=== PATIENT | female | born 2000 | race Caucasian/White ===

== ENCOUNTER 2023-06-27 08:45 | Outpatient (AMB) | payer OTHER, SELFPAY ==
--- NOTE | 2023-06-27 08:51 | HO.SPINEOV ---
Intake Visit Reasons: Sacroiliitis Intake Note: Ms. Cool is here today c/o Right sided SI Joint pain that radiates down right leg. Industrial Relations Analyst Required: No Allergies No Known Allergies Allergy (Verified 06/27/23 08:56) Assessment & Plan Assessment & Plan (1) SI (sacroiliac) joint inflammation: Code(s): M46.1 - Sacroiliitis, not elsewhere classified Category: Medical Plan Dear colleague Thank you for referring Liat Cool to the office today with a chief complaint of right SI joint pain. HPI: This unfortunate 22-year-old female developed an acute pain on the right side in the region of her SI joint in October of 2020 without any precipitating factors. The pain has been debilitating. The pain wakes her up at night, prevents her from walking or sitting for prolonged period of times. In and out of cars very painful. On a normal day the pain can be 10/10 during a flare up. Sometimes the pain radiates down the leg. She still works with the [employer] office. She tried several conservative treatments such as physical therapy chiropractic therapy which were not helpful. An injection in the SI joint gave near complete relief for several months. She also wears an SI joint belt that relieves the pain. The left side is unaffected. PMH: Noncontributory Medications: None Allergies: NKDA Social history: Employed, nonsmoker Physical Exam: Pleasant female in obvious agony. This pain on palpation over the right SI joint. TESSY test is positive. Martínez test is positive. No deficits for motor sensation or reflexes. There is hypermobility of her elbow and knee joints. Radiological Studies: MRI of the lumbar spine done at [facility] on 09/05/2022 shows no surgical abnormalities of the lumbar spine. Impression/Plan: This 22-year-old female suffering from a right sacroiliitis. She has a classic findings on physical exam and responded well to an SI joint injection and an SI joint belt. Unfortunately, the symptoms are not improving over time and therefore I advised her to undergo an SI joint fusion. She will be scheduled for 10/09/2023. Thank you for allowing me to participate in your patients care. total time spent was 35 minutes in counseling ,coordination of plan, personal review of imaging, surgical decision making and subsequent plan William Peraza MD, PhD Spine Fellowship Trained Neurosurgeon Director, [facility] Coding Level of Care Code New Pt Level 3 (12668) Diagnoses SI (sacroiliac) joint inflammation M46.1
== END 2023-06-27 09:42 | disposition home or self-care (01) ==
PROVIDERS: PCP Internal Medicine; Referring Provider Physician Assistant; Visit Provider Neurological Surgery
DX: M46.1 Sacroiliitis, not elsewhere classified (principal)
CPT/HCPCS: 99203

== ENCOUNTER → 2023-06-27 08:45 | Outpatient (BNVA) | payer OTHER, SELFPAY | PROVIDERS: PCP Internal Medicine; Visit Provider Neurological Surgery ==

== ENCOUNTER 2023-11-06 07:50 | Day surgery (SDC) | payer OTHER, SELFPAY ==
[2023-10-22 13:35] VITALS: BMI 27.5
--- NOTE | 2023-11-05 12:17 | HO.ANESPROP2 ---
Documented by User: Siomara Schumacher NP 11/05/23 12:18 HPI - Anesthesia Eval Consult details Narrative: 23yo F for Right Sacroiliac Joint Fusion PMFSH Active Problems Active Problems: All Active Problems SI (sacroiliac) joint inflammation (Acute) Past Medical History Medical History Sacroiliac joint pain Low back pain History of seizure (~2018) Hx of eating disorder Depression Anxiety History of OCD (obsessive compulsive disorder) Surgical History Surgical History Hx of wisdom tooth extraction History of tonsillectomy Social History Social History Household Members: Significant Other Housing: Apartment Patient Tobacco Use Status: Never used Tobacco Use of substances other than those prescribed or required for medical reasons: Yes Substance Use Type: Marijuana Substance Use Type Other:: marijuana once every 2 weeks Substance Use Frequency: Monthly Have you been hit, kicked, punched, or otherwise hurt by someone within the past year? If so, by whom?: No Are you DNR?: No Advance Directives: No Advance Directives Information Provided: Yes Advance Directives on File: No Healthcare Proxy: No Recently lost weight without trying: No Patient : No FDLMP: 10/19/2023 : No Poor oral hygiene: No Meds Allergies Allergy/AdvReac Type Severity Reaction Status Date / Time No Known Allergies Allergy Verified 10/22/23 13:31 Home Medications ?Medication ?Instructions ?Recorded ?Confirmed ?Last Taken ?Type No Known Home Meds 10/22/23 10/22/23 Unknown History Exam Height,Weight and Vital Signs: Height 5 ft 4 in Weight 72.575 kg Assessment and Plan Assessment Anesthesia Assessment: Chart Reviewed Documented by User: Filomena Beasley MD 11/06/23 10:50 PMFSH Past Medical History Medical History Sacroiliac joint pain Low back pain History of seizure (~2018) Hx of eating disorder Depression Anxiety History of OCD (obsessive compulsive disorder) Surgical History Surgical History Hx of wisdom tooth extraction History of tonsillectomy History of Problems with Anesthesia: No Social History Social History Household Members: Significant Other Housing: Apartment Patient Tobacco Use Status: Never used Tobacco Use of substances other than those prescribed or required for medical reasons: Yes Substance Use Type: Marijuana Substance Use Type Other:: marijuana once every 2 weeks Substance Use Frequency: Monthly Have you been hit, kicked, punched, or otherwise hurt by someone within the past year? If so, by whom?: No Are you DNR?: No Advance Directives: No Advance Directives Information Provided: Yes Advance Directives on File: No Healthcare Proxy: No Recently lost weight without trying: No Patient : No FDLMP: 10/19/2023 : No Poor oral hygiene: No Meds Allergies Allergy/AdvReac Type Severity Reaction Status Date / Time No Known Allergies Allergy Verified 10/22/23 13:31 Home Medications ?Medication ?Instructions ?Recorded ?Confirmed ?Last Taken ?Type No Known Home Meds 10/22/23 10/22/23 Unknown History Exam Airway Mallampati Class: I TM Dist: >3cm Neck ROM: Full Loose/Missing/Broken Teeth: No Heart: RRR Lungs: CTA Assessment and Plan Assessment Anesthesia Assessment: Anesthesia Plan Discussed Final Anesthetic Review History of Problems with Anesthesia: No NPO: Yes ASA Class: II Final Preanesthetic Review: Meds/Allgs Chart Reviewed, Consent Obtained/Reviewed and Anes Risks/Benef Reviewed Patient Risk: Low Procedure Risk: Intermediate Anesthetic Plan Anesthetic Plan: GA Disposition: Standard PACU
[2023-11-06] VITALS (8 sets, daily range): BP systolic 123–137; BP diastolic 80–91; PULSE 72–111; RESP 14–18; TEMP 36.4–36.6; O2SAT 96–99
[2023-11-06 09:54] LABS: UPreg QC Valid YES; Urine Pregnancy NEGATIVE (NEGATIVE)
[2023-11-06] MEDS: Lactated Ringers 1,000 ML 100 ML IVCONT (10:00)
[2023-11-06] MEDS: methocarbamoL 750 MG TABLET PO (10:04)
[2023-11-06] MEDS: Gabapentin 300 MG CAPSULE PO (10:04)
--- NOTE | 2023-11-06 10:15 | MHC.SHP ---
Pre-Procedural Eval Section A - 24 Hr Update-Section A only Date of Service: 11/06/23 The patient is an INPATIENT: No Section B - Complete if H&P > 30 days Chief Complaint: Sacroiliitis, not elsewhere classified Allergies: Allergies Allergy/AdvReac Type Severity Reaction Status Date / Time No Known Allergies Allergy Verified 10/22/23 13:31 Review of Systems Sugical H&P ROS: Negative: Constitution, Cardiovascular, Respiratory, Neurological, Psychiatric, Hem-Onc, Allergic/Immunologic, Gastrointestinal, Genitourinary, Musculoskeletal, Integumentary, Endocrine and Eyes/Ears/Nose/Throat Exam Surgical H&P Exam: Normal: HEENT, Normal: Heart, Normal: Lungs, Normal: Extremities, Normal: Abdomen, Normal: Skin and Normal: Neurological (Awake, alert) Plan Diagnosis/Plan: Unchanged I have reviewed the history and physical and performed a pertinent physical examination on my patient. No changes have occurred unless specified. Right SI joint fusion Time Spent With Patient Time: Total time managing care of this patient today _5___ minutes.
[2023-11-06] MEDS: Scopolamine 1.5 MG PATCH.TD.3 TRANSDERMA (10:53)
--- NOTE | 2023-11-06 11:57 | PM.DS ---
DS: Providers Provider Date of Service: 11/06/23 Date of discharge: 11/06/23 Primary care physician: Mariaa Navarro MD Admitting clinician: William Peraza DS: Diagnosis Discharge Diagnosis (1) SI (sacroiliac) joint inflammation: Status: Acute DS: Summary Time Attestation Discharge Coordination Time (in mins): 5 Quality: Safe Use of Opioids Does Pt have an Active Cancer Diagnosis on the Problem List?: No Quality: Stroke Does the patient have a stroke diagnosis?: No Physical Exam Vital Signs: Vital Signs: Last Vital Signs Temp 97.6 F 11/06/23 09:50 Pulse 73 11/06/23 09:50 Resp 16 11/06/23 09:50 BP 133/84 11/06/23 09:50 Pulse Ox 96 11/06/23 09:50 O2 Del Method Room Air 11/06/23 09:50 BMI result Body Mass Index 27.5 DS: Data Data Completed and Pending Labs on day of discharge: Laboratory Results - last 24 hr 11/06/23 09:29 Urine Test NEGATIVE Discharge Plan Discharge Patient Disposition: Home, Self-Care Referrals: Mariaa Childs MD [Primary Care Provider] - 1 Week Discharge Medications: New oxycodone 5 mg tablet 5 mg PO Q4H PRN (Reason: pain) Qty: 20 0RF Rx Instructions: Partial Fill upon patient request. docusate sodium [Colace] 100 mg capsule 100 mg PO BID Qty: 20 0RF Discharge Orders: Discharge Order (Routine); Ordered 11/06/23 Ordered By: James Blas Diet: Advance to usual diet Activity on Discharge: As tolerated Activity Restrictions/Additional Instructions: After your SI joint fusion surgery we ask you to observe the following restrictions/guidelines: Activity: It is normal to feel some discomfort as you increase your activity, but that will improve with time. We ask you avoid heavy lifting or acitivities that cause pain. As a general rule, 8lbs is a safe limit for lifting right after surgery. We ask you to stay off your right leg after surgery in order to help the SI joint fuse. Please use crutches or walker. You may return to driving when you are off narcotics (such as vicodin, oxycodone, dilaudid, etc), and you are back to normal functional capacity. If you have any concerns please check with office before driving. Return to work is specific to each patient and each surgery, so please speak with your doctor/PA at first follow up. Please bring paperwork such as FMLA at that time if you need it filled out. Follow up: Please call the office, , after surgery to arrange a 3 week follow up for wound check. Wound Care: Your wound was closed with glue, there are no sutures to remove. You may shower on post op day # 1. We ask that you do not let the water soak the wound. If it does get wet, just towel dry lightly. Please do not scrub your incision or place any type of chemical/ointment on the wound. No tub baths, pools or jacuzzis for one month. If you have any leaking or redness from your wound, or fevers, please call office Medications: We will give you a short supply of narcotics after surgery (usually one weeks worth). If you need more please call the office but do not use more than prescribed. You will need to give our office 48 hours notice if you need narcotics refilled and we do not fill narcotics on weekends or evenings. If you are on a narcotic, it is a good idea to take a stool softener such as colace or senna to avoid constipation If you take blood thinner such as aspirin, Plavix, Coumadin, Effient, Eliquis etc for conditions such as Afib, DVT, Pulmonary embolus, coronary disease, stents etc please speak with your surgeon about specific details as to when you can resume these medications. You can resume NSAIDs on post op day 1 (eg: Motrin, Naproxen, etc). Print Language: Yakut
[2023-11-06] MEDS: HYDROmorphone HCl 0.5 MG/0.5 ML SYRINGE 0.25 MG IVPUSH (12:37)
--- NOTE | 2023-11-06 13:17 | P.OP_ITS ---
Operative Note Operative Note Date of Service: 11/06/23 Narrative: Preoperative diagnosis: Right sacroiliac joint dysfunction Postoperative diagnosis: Same Operative procedure: Right sacroiliac joint fusion with 1 allograft implant Surgeon: William Peraza MD, PhD Hall Porter: James Blas PA-C Anesthesia: General Description of procedure: The patient is suffering from right SI joint dysfunction refractory to nonoperative management. The patient has tried and failed all forms of conservative manage med except for an excellent short-term response to a sacroiliac joint injection. The sacroiliac joint was confirmed to be the pain generator after repeated pain blocks. The patient was offered surgical treatment with fixation and arthrodesis of the SI joint. The patient was brought to the operating room and endotracheally intubated. The patient was turned in a prone position on Kadeem spine table. Prepping and draping was done followed by a time-out. A C-arm was alternately positioned for lateral, oblique oblique and pelvic inlet and outlet projections througout the procedure. Skin markings were made for the anticipated position of the implant. A 2.5 cm longitudinal skin incision was made. A guide pin was inserted in an outlet oblique image for guidance follow-up insertion of dilator and working cannula. This was secured by placing an anchor pin into the ilium. Consideration was taken to cut channels utilizing a series of drills for decortication and internal fixation device placement. The implant was inserted such that it passed through the ilium, across the sacroiliac joint and into the sacrum, thus transfixing the sacroiliac joint. Proper positioning was confirmed on lateral fluoroscopy. The implant was packed with autologous bone collected from remain of the sacrum and ilium. Additional graft material was inserted into the khoury dianelys void following the implant. The instruments were withdrawn. Upon completion, final images were obtained that showed a satisfactory position of the implant. Hemostasis was done. The incision was closed with an 0 Vicryl to fashion a 3-0 Vicryl subdermal layer after injecting Marcaine. Dermabond was used to approximate the surgeon. All sponge and needle counts were correct. Patient was extubated and transported in a stable condition to recovery room. Estimated blood loss: 30 Complications: None Disposition: Discharge to home
== END 2023-11-06 13:40 | disposition home or self-care (01) ==
PROVIDERS: Nurse Practitioner; PCP Internal Medicine; Visit Provider Neurological Surgery
PROC: (CPT 27279; principal; 2023-11-06 11:00)
DX: M46.1 Sacroiliitis, not elsewhere classified (principal); M53.3 Sacrococcygeal disorders, not elsewhere classified; M54.50 Low back pain, unspecified; F32.A Depression, unspecified; F41.9 Anxiety disorder, unspecified
CPT/HCPCS: 27279; 81025; C1713; J0131; J0690; J1100; J1170; J1885; J2250; J2405; J2704; J3010; L8699

== ENCOUNTER → 2023-11-06 07:50 | Outpatient (BNV) | payer OTHER, SELFPAY | PROVIDERS: PCP Internal Medicine; Visit Provider Physician Assistant | DX: M46.1 Sacroiliitis, not elsewhere classified (principal) | CPT/HCPCS: 27279; 99499 ==

== ENCOUNTER 2023-11-28 14:53 | Outpatient (AMB) | payer OTHER, SELFPAY ==
--- NOTE | 2023-11-28 15:00 | HO.SPINEOV ---
Intake Visit Reasons: 1st Post-op visit Intake Note: Ms. Cool is here today for her 1st post-op appointment. Coach Professional Athletes Required: No Allergies No Known Allergies Allergy (Verified 10/22/23 13:31) Assessment & Plan Assessment & Plan (1) Status post fusion of sacroiliac joint: Code(s): Z98.1 - Arthrodesis status Category: Surgical Plan Dear colleague, On 11/28/2023, I saw for 1st postop visitSalima Cool. She underwent a left SI joint fusion 3 weeks ago and is currently pain-free. She can be weight-bearing. I would like to follow-up in 6 weeks with an x-ray. Thank you for allowing me to take care of your patient. William Peraza MD, PhD Spine Fellowship Trained Neurosurgeon Director, [facility] [place] [facility] Orders: Orders XR pelvis 1-2V Today Z98.1 - Arthrodesis status Coding Level of Care Code Global (78160) Diagnoses Status post fusion of sacroiliac joint Z98.1
== END 2023-11-28 15:13 | disposition home or self-care (01) ==
PROVIDERS: PCP Internal Medicine; Visit Provider Neurological Surgery
DX: Z98.1 Arthrodesis status (principal)
CPT/HCPCS: 99024

== ENCOUNTER 2023-11-28 14:53 | Outpatient (REF) | payer OTHER, SELFPAY | END 2023-11-28 14:54 | disposition home or self-care (01) | LOC: HO.HOSX 14:53 | PROVIDERS: PCP Internal Medicine; Visit Provider Neurological Surgery | DX: Z13.89 Encounter for screening for other disorder (principal) ==

== ENCOUNTER 2023-12-18 14:43 | Outpatient (AMB) | payer OTHER, SELFPAY ==
--- NOTE | 2023-12-18 15:03 | HO.SPINEOV ---
Intake Visit Reasons: postop wound site check Intake Note: Ms. Cool is here today for post op wound site check. Inspector Watch Assembly Required: No Allergies No Known Allergies Allergy (Verified 01/16/24 11:37) Assessment & Plan Assessment & Plan (1) SI (sacroiliac) joint inflammation: Code(s): M46.1 - Sacroiliitis, not elsewhere classified Category: Medical Plan Travon called the office today reporting that she had a small opening near the base of her incision. She was concerned that it may be infected. I called and spoke with the patient asked her to come in to see us today. We added her on to be seen the same day. She reports that the area does have some increased pain to touch. She feels as though the incision has not been healing properly as it is rubbing on her clothes. She has been keeping a Band-Aid on it as previously instructed by Dr. Peraza. On examination today the wound appears clean, dry, with no active drainage. There is no purulence expressed when palpating the edges of the wound together. There is no notable fluctuance, edema, or other signs of infection. I will note that the wound itself has very thin layer of skin healing over the top of it and seems quite friable. After discussion and examination with Travon, I did not believe the incision site to be infected. Dr. Peraza was available in the office and also evaluated the patient, reporting there is very low suspicion of infection at this time. I cleanse the area with iodine, alcohol swabs, and placed a fabric bandage over the top. I provided her with more dressing materials to cover the wound as it heals so it does not press against her clothing. I also will call in a 5 day prescription of Bactrim for prophylaxis as we manipulated the wound today. Rahul Peraza MD,PhD [facility] Medications: New sulfamethoxazole-trimethoprim 800-160 mg (Bactrim DS) 1 tab PO BID 30 tabs 0RF prophylaxis sulfamethoxazole-trimethoprim 800-160 mg (Bactrim DS) 1 tab PO BID 10 tabs 0RF prophylaxis 5 days Coding Level of Care Code Global (79107) Diagnoses SI (sacroiliac) joint inflammation M46.1
== END 2023-12-18 15:21 | disposition home or self-care (01) ==
LOC: HO.HNS 14:43
PROVIDERS: PCP Internal Medicine; Visit Provider Physician Assistant
DX: M46.1 Sacroiliitis, not elsewhere classified (principal)
CPT/HCPCS: 99024

== ENCOUNTER 2024-01-16 09:32 | Outpatient (REF) | payer OTHER, SELFPAY ==
--- NOTE | ~2024-01-16 | XR_ITS ---
EXAMINATION: XR PELVIS CLINICAL INFORMATION: Arthrodesis status Z98.1. COMPARISON: Intraoperative fluoroscopy guidance from 11/06/2023 TECHNIQUE: AP view of the pelvis. FINDINGS: Nonmetallic fixation device projecting over the lower right sacroiliac joint space. Sacroiliac joint with some surrounding sclerosis but otherwise well approximated No fracture. Hip joint spaces are maintained. Alignment is anatomic. Pubic symphysis are normal. No abnormal soft tissue calcifications. XR/XR pelvis min 3V IMPRESSION: Nonmetallic fixation device projecting over the lower right sacroiliac joint space. Electronically signed by: Milad Jaimes MD 02/03/2024 11:33 AM [facility]
== END 2024-01-16 09:33 | disposition home or self-care (01) ==
LOC: HO.HOSX 09:32
PROVIDERS: Visit Provider Physician Assistant
DX: Z98.1 Arthrodesis status (principal)
CPT/HCPCS: 72190

== ENCOUNTER 2024-01-16 11:13 | Outpatient (AMB) | payer OTHER, SELFPAY ==
--- NOTE | 2024-01-16 11:36 | HO.SPINEOV ---
Intake Visit Reasons: 2nd post op with xrays Intake Note: Ms. Cool is here today for her 2nd post op with xrays. Tie Bucker Required: No Allergies No Known Allergies Allergy (Verified 01/16/24 11:37) Assessment & Plan Assessment & Plan (1) SI (sacroiliac) joint inflammation: Code(s): M46.1 - Sacroiliitis, not elsewhere classified Category: Medical Plan Dear Dr Ignacio, Ms Cool is 2-1/2 months out from her right SI joint fusion. She has otherwise been doing remarkable and is very happy she had the surgery. She has occasional days where it is a little more difficult to do things but in general the pain that she had his mostly gone away. Her x-rays today look great, I can already start to see signs of bone bridging and fusion across the implant. At this point she has no restrictions and can return to activities as tolerated. We will see her down the road if something changes. Thank you for this referral James Peraza MD, PhD [facility] Orders: Orders XR pelvis min 3V Today Z98.1 - Arthrodesis status Coding Level of Care Code Global (88922) Diagnoses SI (sacroiliac) joint inflammation M46.1
== END 2024-01-16 11:49 | disposition home or self-care (01) ==
PROVIDERS: PCP Internal Medicine; Visit Provider Neurological Surgery
DX: M46.1 Sacroiliitis, not elsewhere classified (principal)
CPT/HCPCS: 99024